=== PATIENT | female | born 1980 | race Caucasian/White ===

== ENCOUNTER → 2023-12-30 | Outpatient (CLI) | payer OTHER | LOC: M RAD 10:57 | PROVIDERS: ATTEND Nurse Practitioner Family | DX: R10.11 Right upper quadrant pain (principal) ==

== ENCOUNTER 2024-02-18 09:55 | Day surgery (SDC) | payer OTHER ==
[~2024-02-18] VITALS: Ht 170.2 cm; Wt 95.7 kg
[~2024-02-18 09:55] MED LIST: ALBU8.5H INH; BUSP5TA PO; CLAR10CA3 PO; MONT10TA97 PO; SYMB16INH PO; THERTAB52 PO; TRI-TAB16 PO; VENL75CA47 PO
[2024-02-18] MEDS ORDERED: fentaNYL 100 MCG/2 ML INJECTION As Ordered ONE (10:16)
[2024-02-18] MEDS ORDERED: LIDOCAINE 2% 100MG/5ML SDV (FOR ANES.) As Ordered ONE (10:37)
[2024-02-18] MEDS ORDERED: propofoL 500 MG/50 ML VIAL As Ordered ONE (10:37)
[2024-02-18 10:50] VITALS: TEMP 97.2
[2024-02-18 11:05] VITALS: BP 142/83; O2SAT 97
== END 2024-02-18 11:15 | disposition home or self-care (01) ==
LOC: M OPP 09:55 → EDUNIT# 12:00
PROVIDERS: ATTEND Internal Medicine Gastroenterology
DX: K63.5 Polyp of colon (principal); K64.8 Other hemorrhoids; K58.0 Irritable bowel syndrome with diarrhea; K29.70 Gastritis, unspecified, without bleeding; K21.9 Gastro-esophageal reflux disease without esophagitis; F41.9 Anxiety disorder, unspecified; J45.909 Unspecified asthma, uncomplicated; Z88.1 Allergy status to other antibiotic agents; Z79.51 Long term (current) use of inhaled steroids; Z79.899 Other long term (current) drug therapy
CPT/HCPCS: 43239; 45380; 45385; 88305; J3010